=== PATIENT | male | born 1945 | race Caucasian/White ===

== ENCOUNTER 2018-03-19 08:23 | Day surgery (SDC) | payer OTHER ==
[2018-03-15 10:28] LABS: Absolute Lymphocytes (CBC) 1.2 K/uL (0.7-4.9); Absolute Monocytes 0.6 K/uL (0.1-1.3); Absolute Neutrophil 4.6 K/uL (1.8-8.0); Basophils % 0.8 % (0-1.3); Eosinophils % 7.1 % (0-4.4); Hematocrit 45.8 % (39.6-49.0); Lymphocytes % 17.5 % (15.3-44.8); MCH 32.2 pg (27.0-35.0); MCV 96.1 fL (80-100); MPV 9.9 fL (7.6-11.3); RBC Red Blood Cell Count 4.77 M/uL (4.33-5.43)
[2018-03-15 10:29] LABS: Urine Appearance CLOUDY; Urine Bilirubin NEGATIVE (NEG); Urine Blood 3+ (NEG); Urine Color YELLOW; Urine Glucose NEGATIVE (NEG); Urine Protein 1+ (NEG); Urine Urobilinogen 0.2 mg/dL (0.2-1.0); Urine pH 5.5 (5.0-7.0)
[2018-03-15 10:31] LABS: Urine Microscopic Reflex ORDER UMIC
[2018-03-15 10:40] LABS: Protime INR 0.9
[2018-03-15 10:41] LABS: Phosphorus 2.8 mg/dL (2.5-4.9); Potassium 4.6 mmol/L (3.5-5.1); Uric Acid 5.1 mg/dL (3.5-7.2)
[2018-03-15 10:52] LABS: Urine Bacteria 20-50 /HPF (NONE SEEN); Urine RBC TNTC /HPF (NONE SEEN)
[2018-03-15 10:53] LABS: Urine Culture Reflex Order NOT NEEDED
--- NOTE | 2018-03-15 11:05 | RAD REPORT ---
EXAM DESCRIPTION: RAD - Chest Pa And Lat (2 Views) - 03/15/2018 10:27 am CLINICAL HISTORY: Preop chest examination, history of kidney stones, pending prostate procedure, his tory of testicular carcinoma with orchidectomy COMPARISON: CT study March 11 TECHNIQUE: PA and lateral views of the chest were obtained. FINDINGS: The lungs are clear of an acute infiltrate, mass or failure. Heart size is normal and ce ntral vasculature is within normal limits. No pleural effusion or pneumothorax seen. No acute aorti c finding. Aortic tortuosity is present. Hilar regions are not outside of normal range. Bony degenerative changes are present. Near the thoracolumbar junction common approximately 40% compr ession fracture deformity is seen. Posterior wall height appears to be preserved. Comparison is only a few days old. There are no remote studies to establish acute or long-term stability. IMPRESSION: No acute cardiopulmonary process. Compression fracture near the thoracolumbar junction is of uncertain age. The CT study did not show lytic or blastic change in this region. Follow-up MR imaging could be performed to evaluate for any a ctive marrow process.
--- NOTE | 2018-03-15 18:50 | EKG ---
Test Date: 2018-03-15 Test Time: 10:02:31 Systems Integration Manager: KENISHA MEASUREMENT RESULTS: Intervals: Rate: 43 IN: 216 QRSD: 80 QT: 480 QTc: 405 [place]: P: 32 IN: 216 QRS: 21 T: 24 INTERPRETIVE STATEMENTS: Marked sinus bradycardia with 1st degree AV block Abnormal ECG No previous ECG available for comparison Electronically Signed On 03-15-18 18:47:30 CDT by Jimneez Cote
[2018-03-19] MEDS ORDERED: Ringers Lactate 1,000 ML IV ONE (08:31)
[2018-03-19] MEDS ORDERED: GENTAMICIN 100 MG/100 ML BAG 100 MG/100 ML BAG IV ONE (08:31)
[2018-03-19] MEDS ORDERED: LIDOCAINE 2% MPF 5 ML VIAL ONE (09:26)
[2018-03-19] MEDS ORDERED: PROPOFOL 200 MG/20 ML VIAL IV ONE (09:26)
[2018-03-19] MEDS ORDERED: MIDAZOLAM HCL 2 MG/2 ML INJ ONE (09:26)
[2018-03-19] MEDS ORDERED: FENTANYL CITR 100 MCG/2 ML ONE (09:27)
[2018-03-19] MEDS ORDERED: ONDANSETRON 4 MG/2 ML VIAL ONE (10:09)
--- NOTE | 2018-03-19 10:45 | RAD REPORT ---
EXAM DESCRIPTION: RAD - Abdomen 1 View (KUB) - 03/19/2018 8:46 am CLINICAL HISTORY: ICD N 20.0 FINDINGS: The bowel gas pattern is unremarkable. The known calculus within the left renal pelvis is not visualized on this examination. Calcifications in the pelvis likely represent phleboliths
== END 2018-03-19 12:55 | disposition home or self-care (01) ==
LOC: OR 08:23
PROVIDERS: ATTEND Urology
PROC: BT1FYZZ Fluoroscopy of Left Kidney, Ureter and Bladder using Other Contrast (ICD-10-PCS; 2018-03-19)
PROC: 0TF78ZZ Fragmentation in Left Ureter, Via Natural or Artificial Opening Endoscopic (ICD-10-PCS; principal; 2018-03-19 09:30)
DX: N40.1 Benign prostatic hyperplasia with lower urinary tract symptoms (principal); N20.0 Calculus of kidney; R39.12 Poor urinary stream; R31.21 Asymptomatic microscopic hematuria
CPT/HCPCS: 36415; 50590; 52005; 71046; 74018; 80048; 84100; 84550; 85025; 85610; 85730; 86850; 86900; 86901; 87086; 93005; J1580; J2250; J2405; J3010; Q9967; 81003; 81015; 87088

== ENCOUNTER 2024-11-24 10:21 | Emergency (ER) | payer OTHER ==
--- OUTSIDE RECORDS SUMMARY | 2024-11-24 10:26 | XMS REPORT | Continuity of Care Document ---
Author Name Unknown Address [address] [place] [address] [facility] Address [address] [place] [address] Care Team Providers Care Health Safety Coordinator Name Role Phone Unavailable Unavailable Unavailable Payers Payer Name Policy Type Policy Number Effective Date Expirati on Date Source Allergies, Adverse Reactions, Alerts Allergy Name Allergy Type Status Severity Reaction(s) Onset Date Inactive Date Treating Clinician Comments Source Sulfa (Sulfona mide Antibiot ics) DA Active U 04-22 00:00: 00 [facility] Encounters Start Date/Time End Date/Time Encounter Type Admission Type Attending Clinicians Care Facility Care Department Encounter ID Source 2019-08-01 05:13:00 2019-08-01 05:13:00 Outpatient [id number]
[2024-11-24] MEDS ORDERED: FAMOTIDINE 20 MG/2 ML VIAL IV ONE (10:53)
[2024-11-24] MEDS ORDERED: FOLIC ACID 5 MG/ML VIAL ONE (10:53)
[2024-11-24] MEDS ORDERED: NA CHLORIDE 0.9% 2,000 ML ONE (10:54)
[2024-11-24 11:05] LABS: PT Prothrombin Time 13.4 SECONDS (10-13.0); Protime INR 1.18
[2024-11-24 11:09] LABS: Absolute Lymphocytes (CBC) 1.1 K/uL (0.7-4.9); Absolute Monocytes 1.9 K/uL (0.1-1.3); Absolute Neutrophil 13.3 K/uL (1.8-8.0); Basophils % 0.1 % (0-1.3); Hemoglobin 13.6 g/dL (13.6-17.9); Lymphocytes % 6.7 % (15.3-44.8); MCHC 33.2 g/dL (32.0-36.0); MCV 93.4 fL (80-100); MPV 9.9 fL (7.6-11.3); Monocytes % 11.6 % (3.3-12.3); Neutrophils % 81.6 % (41.7-73.7); Platelets 234 thou/uL (152-406); RBC Red Blood Cell Count 4.38 M/uL (4.33-5.43); Red Cell Distribution Width 14.3 % (12.1-15.2)
[2024-11-24 11:18] LABS: Albumin 2.9 g/dL (3.4-5.0); Albumin/Globulin Ratio 0.7 (1.1-1.8); Anion Gap 9.6 mEq/L (5.0-15.0); Bilirubin Direct 0.3 mg/dL (0-0.2); Bilirubin Indirect, Calculated 0.8 mg/dL (0.2-0.8); Bilirubin Total 1.1 mg/dL (0.2-1.0); Globulin 4.2 g/dL (2.3-3.5); Magnesium 2.2 mg/dL (1.6-2.4); Potassium 3.6 mEq/L (3.5-5.1); Protein, Total 7.1 g/dL (6.4-8.2)
[2024-11-24 11:21] LABS: Troponin High Sensitivity 125.3 pg/mL (<58.9)
--- NOTE | 2024-11-24 11:26 | ER ---
Nurse's Notes [facility] [place] Name: Enrique Bajwa Jr Age: 79 yrs Sex: Male : 1945 Arrival Date: 11/24/2024 Time: 10:21 Bed 7 Private MD: Diagnosis: Weakness;UTI/ Urinary tract infection, site not specified;Hydronephrosis with renal and ureteral calculous obstruction-8 mm left proximal;Chronic kidney disease, unspecified;Elevated white blood cell count;exterminator helper (current) use of anticoagulants Presentation: 11/24 10:38 Chief complaint: Patient states: Dizziness, R hand and foot tingling/ weakness that ss began at approximately 0900 yesterday morning. Coronavirus screen: Client denies travel out of the [place] in the last 14 days. Ebola Screen: Patient denies exposure to infectious person. Patient denies travel to an Ebola-affected area in the 21 days before illness onset. Initial Sepsis Screen: Does the patient meet any 2 criteria? No. Patient's initial sepsis screen is negative. Does the patient have a suspected source of infection? No. Patient's initial sepsis screen is negative. Risk Assessment: Do you want to hurt yourself or someone else? Patient reports no desire to harm self or others. Onset of symptoms was November 23, 2024 at 09:00. 10:38 Method Of Arrival: Wheelchair ss 10:38 Acuity: DOUG 3 ss 11:00 No acute neurological deficit is noted. Pre-hospital glucose is not applicable to this jl7 patient. Triage Assessment: 11:00 The onset of the patients symptoms was November 23, 2024 at 12:00. General: Appears in no jl7 apparent distress. uncomfortable, Behavior is calm, cooperative, appropriate for age. Pain: Denies pain. Neuro: Level of Consciousness is awake, alert, obeys commands, Oriented to person, place, time, situation, Reports dizziness. Stroke Activation: Symptom onset > 6 hours Physician: ED Attending; Name: ; Notified At: ; Arrived At: Physician: Mid-Level Provider; Name: ; Notified At: ; Arrived At: Physician: [not used]; Name: ; Notified At: ; Arrived At: Physician: [not used]; Name: ; Notified At: ; Arrived At: Physician: [not used]; Name: ; Notified At: ; Arrived At: Historical: - Allergies: 10:41 Novacaine; ss - Home Meds: 11:00 Eliquis oral [Active]; jl7 - PMHx: 11:00 Cerebrovascular accident; jl7 - Immunization history:: Client reports receiving the 2nd dose of the Covid vaccine. - Infectious Disease History:: Denies. - Social history:: Smoking status: Patient denies any tobacco usage or history of. Screenin:56 [facility] ED Fall Risk Assessment (Adult) History of falling in the last 3 months, iw including since admission No falls in past 3 months (0 pts) Confusion or Disorientation No (0 pts) Intoxicated or Sedated No (0 pts) Impaired Gait Yes (1 pt) Mobility Assist Device Used Yes (1 pt) Altered Elimination No (0 pt) Score/Fall Risk Level 0 - 2 = Low Risk Oriented to surroundings, Maintained a safe environment. Abuse screen: Denies threats or abuse. Nutritional screening: No deficits noted. Tuberculosis screening: No symptoms or risk factors identified. Assessment: 10:50 VAN Scoring: Arm Drift: Patients demonstrates NO arm weakness. Patient is VAN Negative. iw Visual Disturbance: No visual disturbance noted. Aphasia: No aphasia noted. Neglect: No neglect noted. TNKase (Tenecteplase) Screening: Contraindications: Patient reports onset of signs and symptoms of stroke greater than 6 hours ago: Yes. Is the patient on Aspirin, Heparin, or Warfarin: Yes. 10:50 [place] Swallow Protocol Exclusion Criteria: Unable to remain alert for testing: No NPO iw for medical/surgical reason by provider order No Brief Cognitive Screen What is your name? Normal, Where are you right now? Normal, What year is it? Normal. Oral Mechanism Examination Facial Symmetry: Normal, Oral Mechanism Result: Normal. 3 oz Water Swallow Challenge: Pt able to drink all water without stopping, coughing, choking or throat clearing: Result: PASS MD Notified: Cristiano Basilio MD. 11:21 Reassessment: Dr. Basilio notified of critical lab value TROPONIN 125.3. ss 12:00 Reassessment: Patient appears in no apparent distress at this time. Patient and/or iw family updated on plan of care and expected duration. Pain level reassessed. assisted with urinal. Vital Signs: 10:38 BP 134 / 70; Pulse 76; Resp 18; Temp 97.6(O); Pulse Ox 95% on R/A; Weight 81.65 kg; ss Height 5 ft. 10 in. ; Pain 0/10; 13:49 BP 113 / 83; Pulse 73; Resp 15; Pulse Ox 92% ; jl7 15:18 BP 120 / 71; Pulse 57; Resp 19; Pulse Ox 100% on R/A; iw 10:38 Body Mass Index 25.83 (81.65 kg, 177.8 cm) ss 10:38 Pain Scale: Adult ss NIH Stroke Scale Scores: 10:50 NIHSS Score: 2 iw ED Course: 10:22 Patient arrived in ED. im 10:24 Cristiano Basilio MD is Attending Physician. eliot 10:40 Robbin Rashid RN is Primary Nurse. jl7 10:40 Triage completed. ss 10:41 Arm band placed on right wrist. ss 10:51 Inserted saline lock: 20 gauge in right antecubital area, using aseptic technique. iw Blood collected. Flushed with 10 mL NS. 10:53 Basic Metabolic Panel Sent. bc6 10:53 CBC with Diff Sent. bc6 10:53 LFT's Sent. bc6 10:53 Magnesium Sent. bc6 10:53 NT PRO-BNP Sent. bc6 10:53 PT-INR Sent. bc6 10:53 Troponin HS Sent. bc6 10:53 Lactate w/ 2H reflex if indic. Sent. bc6 10:53 Blood Culture Adult (2) Sent. bc6 10:53 Lipase Sent. bc6 10:53 COVID-19 Ag + Flu A+B Ag Sent. bc6 10:56 Patient has correct armband on for positive identification. Placed in gown. Bed in low iw position. 11:11 XRAY Chest (1 view) In Process Unspecified. EDMS 11:23 Grayson Camacho MD is Hospitalizing Provider. eliot 11:53 CT Head Brain wo Cont In Process Unspecified. EDMS 11:53 CT Head Angio In Process Unspecified. EDMS 11:53 CT Neck Angio In Process Unspecified. EDMS 11:53 Brain Wo Cont In Process Unspecified. EDMS 11:54 Stone Protocol In Process Unspecified. EDMS 15:43 Provided Education on: use of call gallego. jl7 15:43 No provider procedures requiring assistance completed. Patient transferred, IV remains jl7 in place. intact, No redness/swelling at site. Administered Medications: 11:00 Drug: NS 0.9% IV (30 ml/kg) 30 ml/kg IV at bolus once; Sepsis Protocol; to be given as jl7 a bolus over 90 minutes Route: IV; Rate: bolus; Site: right antecubital; 15:13 Follow up: IV Status: Completed infusion iw 11:00 Drug: Famotidine IVP 20 mg IVP once; dilute with 10 mL 0.9% NaCl; give over 2 minutes jl7 Route: IVP; Site: right antecubital; 15:13 Follow up: Response: No adverse reaction iw 11:00 Drug: foLIC Acid IVPB 1 mg IVPB once Route: IVPB; Site: right antecubital; jl7 15:13 Follow up: IV Status: Completed infusion iw 13:09 Drug: Rocephin IV 1 grams IV at per protocol once; Given slow IV push per pharmacy iw instructions Route: IV; Rate: per protocol; Site: right antecubital; 15:13 Follow up: IV Status: Completed infusion iw 13:09 Drug: Mucomyst - Acetylcysteine PO 600 mg PO once Route: PO; iw 15:12 Follow up: Response: No adverse reaction iw 13:09 Drug: Flomax PO 0.4 mg PO once Route: PO; iw 15:12 Follow up: Response: No adverse reaction iw Medication: 10:56 VIS not applicable for this client. iw Outcome: 11:25 Decision to Hospitalize by Provider. eliot 12:54 ER care complete, transfer ordered by MD. eliot 15:40 Transferred by ground EMS to [facility], Transfer form completed. jb4 X-rays sent w/ patient. 15:40 Condition: stable 15:40 Discharge instructions given to family, Instructed on the need for transfer, Demonstrated understanding of instructions, 15:44 Patient left the ED. jl7 NIH Stroke Scale - NIH Stroke Score Date: 11/24/2024 Time: 10:50 Total Score = 2 10. Dysarthria (speech clarity - read or repeat words) - 0(Normal) 11. Extinction and Inattention (visual/tactile/auditory/spatial/personal) - 0(No abnormality) 1a. Level of Consciousness (LOC) - 0(Alert) 1b. Level of Consciousness (LOC) (Month \T\ Age) - 0(Both) 1c. LOC Commands (Open \T\ Closes Eyes/Fish Drier) - 0(Both) 2. Best Gaze (Lateral Gaze Paresis) - 0(Normal) 3. Visual Field Loss - 0(No visual loss) 4. Facial Palsy - 0(Normal) 5a. Left Arm: Motor (10-second hold) - 0(No drift) 5b. Right Arm: Motor (10-second hold) - 0(No drift) 6a. Left Leg: Motor (5-second hold - always test supine) - 2(Drift, some effort against gravity) 6b. Right Leg: Motor (5-second hold - always test supine) - 0(No drift) 7. Limb Ataxia (finger/nose \T\ heel/cedillo - test with eyes open) - 0(Absent) 8. Sensory Loss (pinprick arms/legs/face) - 0(Normal) 9. Best Language: Aphasia (description/naming/reading) - 0(No aphasia) Initials: iw Signatures: Dispatcher [employer] EDCristiano Rosenbaum MD MD cha Williams, Irene, RN RN Aliya Pacheco, RN RN Graham Amador, NELY RN Robbin Waggoner RN RN jl7 Venessa Scott Itzel im
--- NOTE | 2024-11-24 11:26 | EDPHYS ---
Physician Documentation [facility] Name: Enrique Bajwa Jr Age: 79 yrs Sex: Male : 1945 Arrival Date: 11/24/2024 Time: 10:21 Bed 7 Private MD: ED Physician Cristiano Basilio HPI: 11/24 10:42 This 79 yrs old Male presents to ER via Wheelchair with complaints of General eliot Weakness. 10:42 weak and dizzy. The patient presents with dizziness, generalized weakness. Onset: The eliot symptoms/episode began/occurred this morning. Context: occurred at home. Modifying factors: The symptoms are alleviated by nothing, the symptoms are aggravated by nothing. Associated signs and symptoms: The patient has no apparent associated signs or symptoms. Severity of symptoms: At their worst the symptoms were moderate in the emergency department the symptoms are unchanged. Patient's baseline: Neuro: alert and fully oriented. Historical: - Allergies: 10:41 Novacaine; ss - Home Meds: 11:00 Eliquis oral [Active]; jl7 - PMHx: 11:00 Cerebrovascular accident; jl7 - Immunization history:: Client reports receiving the 2nd dose of the Covid vaccine. - Infectious Disease History:: Denies. - Social history:: Smoking status: Patient denies any tobacco usage or history of. ROS: 10:43 Constitutional: Negative for fever, chills, and weight loss, Eyes: Negative for injury, eliot pain, redness, and discharge, ENT: Negative for injury, pain, and discharge, Neck: Negative for injury, pain, and swelling, Cardiovascular: Negative for chest pain, palpitations, and edema, Respiratory: Negative for shortness of breath, cough, wheezing, and pleuritic chest pain, Abdomen/GI: Negative for abdominal pain, nausea, vomiting, diarrhea, and constipation, Back: Negative for injury and pain, : Negative for injury, bleeding, discharge, and swelling, MS/Extremity: Negative for injury and deformity, Skin: Negative for injury, rash, and discoloration, Psych: Negative for depression, anxiety, suicide ideation, homicidal ideation, and hallucinations, Allergy/Immunology: Negative for hives, rash, and allergies, Endocrine: Negative for neck swelling, polydipsia, polyuria, polyphagia, and marked weight changes, Hematologic/Lymphatic: Negative for swollen nodes, abnormal bleeding, and unusual bruising, 10:43 Neuro: Positive for altered mental status, dizziness, weakness, Exam: 10:44 Constitutional: This is a well developed, well nourished patient who is awake, alert, eliot and in no acute distress. Head/Face: Normocephalic, atraumatic. Eyes: Pupils equal round and reactive to light, extra-ocular motions intact. Lids and lashes normal. Conjunctiva and sclera are non-icteric and not injected. Cornea within normal limits. Periorbital areas with no swelling, redness, or edema. ENT: Nares patent. No nasal discharge, no septal abnormalities noted. Tympanic membranes are normal and external auditory canals are clear. Oropharynx with no redness, swelling, or masses, exudates, or evidence of obstruction, uvula midline. Mucous membranes moist. Neck: Trachea midline, no thyromegaly or masses palpated, and no cervical lymphadenopathy. Supple, full range of motion without nuchal rigidity, or vertebral point tenderness. No Meningismus. Chest/axilla: Normal chest wall appearance and motion. Nontender with no deformity. No lesions are appreciated. Cardiovascular: Regular rate and rhythm with a normal S1 and S2. No gallops, murmurs, or rubs. Normal PMI, no JVD. No pulse deficits. Respiratory: Lungs have equal breath sounds bilaterally, clear to auscultation and percussion. No rales, rhonchi or wheezes noted. No increased work of breathing, no retractions or nasal flaring. Abdomen/GI: Soft, non-tender, with normal bowel sounds. No distension or tympany. No guarding or rebound. No evidence of tenderness throughout. Back: No spinal tenderness. No costovertebral tenderness. Full range of motion. Male : Normal genitalia with no discharge or lesions. Skin: Warm, dry with normal turgor. Normal color with no rashes, no lesions, and no evidence of cellulitis. MS/ Extremity: Pulses equal, no cyanosis. Neurovascular intact. Full, normal range of motion., bilateral aka Neuro: Awake and alert, GCS 15, oriented to person, place, time, and situation. Cranial nerves II-XII grossly intact. Motor strength 5/5 in all extremities. Sensory grossly intact. Cerebellar exam normal. Normal gait. Psych: Awake, alert, with orientation to person, place and time. Behavior, mood, and affect are within normal limits. 10:44 ECG was reviewed by the Attending Physician. Vital Signs: 10:38 BP 134 / 70; Pulse 76; Resp 18; Temp 97.6(O); Pulse Ox 95% on R/A; Weight 81.65 kg; ss Height 5 ft. 10 in. ; Pain 0/10; 13:49 BP 113 / 83; Pulse 73; Resp 15; Pulse Ox 92% ; jl7 15:18 BP 120 / 71; Pulse 57; Resp 19; Pulse Ox 100% on R/A; iw 10:38 Body Mass Index 25.83 (81.65 kg, 177.8 cm) 10:38 Pain Scale: Adult ss NIH Stroke Scale Scores: 10:50 NIHSS Score: 2 iw MDM: 10:24 Medical Screening Exam initiated eliot 10:45 Differential diagnosis: cardiac arrhythmia, CVA, generalized weakness, GI bleed, eliot idiopathic dizziness, near-syncope, sepsis, TIA. Data reviewed: vital signs, nurses notes, lab test result(s), EKG, radiologic studies, plain films. Consideration of Admission/Observation Patient was admitted/placed on observation. Escalation of care including admission/observation considered. I considered the following discharge prescriptions or medication management in the emergency department Medications were administered in the Emergency Department. See MAR. Independent interpretation of the following test(s) in the Emergency Department EKG: See my EKG interpretation above. Test considered but Not performed: Ultrasound no carotid doppler. Historians other than the Patient: Family Member: family well informed. Care significantly affected by the following chronic conditions: Diabetes, Hypertension, Obesity, eliquis. 11/24 10:26 Order name: Basic Metabolic Panel; Complete Time: 11/24 10:26 Order name: CBC with Diff; Complete Time: :11/24 10:26 Order name: LFT's; Complete Time: :11/24 10:26 Order name: Magnesium; Complete Time: :11/24 10:26 Order name: NT PRO-BNP; Complete Time: :11/24 10:26 Order name: PT-INR; Complete Time: :11/24 10:26 Order name: Troponin HS; Complete Time: 11/24 10:26 Order name: Lipase; Complete Time: 11:22 [facility] 11/24 10:26 Order name: Urinalysis w/ reflexes; Complete Time: 15:13 [facility] 11/24 10:26 Order name: COVID-19 Ag + Flu A+B Ag; Complete Time: 11:47 [facility] 11/24 10:26 Order name: Blood Culture Adult (2) [facility] 11/24 10:26 Order name: Lactate w/ 2H reflex if indic.; Complete Time: 11:22 [facility] 11/24 11:22 Order name: Ghost Lactate-NO COLLECT Timer; Complete Time: 15:13 [facility] 11/24 13:47 Order name: Urine Culture [facility] 11/24 14:37 Order name: Lactate Sepsis 2 HR Follow-up; Complete Time: 15:13 [facility] 11/24 10:26 Order name: XRAY Chest (1 view); Complete Time: 15:13 [facility] 11/24 10:39 Order name: CT Head Brain wo Cont; Complete Time: 12:27 [facility] 11/24 10:39 Order name: CT Head Angio; Complete Time: 12:51 [facility] 11/24 10:39 Order name: CT Neck Angio; Complete Time: 12:51 [facility] 11/24 10:56 Order name: Brain Wo Cont; Complete Time: 13:08 [facility] 11/24 11:39 Order name: Stone Protocol; Complete Time: 12:51 [facility] 11/24 10:26 Order name: EKG; Complete Time: 10:26 [facility] 11/24 10:26 Order name: Cardiac monitoring; Complete Time: 10:53 [facility] 11/24 10:26 Order name: EKG - Nurse/Tech; Complete Time: 10:53 [facility] 11/24 10:26 Order name: IV Saline Lock; Complete Time: 10:53 [facility] 11/24 10:26 Order name: Labs collected and sent; Complete Time: 10:53 [facility] 11/24 10:26 Order name: O2 Per Protocol; Complete Time: 10:53 [facility] 11/24 10:26 Order name: O2 Sat Monitoring; Complete Time: 10:53 [facility] EC:44 Rate is 76 beats/min. Rhythm is regular. QRS [place] is Normal. NH interval is prolonged eliot at 234 msec. QRS interval is normal. QT interval is normal. No Q waves. T waves are Normal. No ST changes noted. Clinical impression: NSR w/ Non-specific ST/T Changes and No evidence of ischemia. Interpreted by me. Reviewed by me. Administered Medications: 11:00 Drug: NS 0.9% IV (30 ml/kg) 30 ml/kg IV at bolus once; Sepsis Protocol; to be given as jl7 a bolus over 90 minutes Route: IV; Rate: bolus; Site: right antecubital; 15:13 Follow up: IV Status: Completed infusion iw 11:00 Drug: Famotidine IVP 20 mg IVP once; dilute with 10 mL 0.9% NaCl; give over 2 minutes jl7 Route: IVP; Site: right antecubital; 15:13 Follow up: Response: No adverse reaction iw 11:00 Drug: foLIC Acid IVPB 1 mg IVPB once Route: IVPB; Site: right antecubital; jl7 15:13 Follow up: IV Status: Completed infusion iw 13:09 Drug: Rocephin IV 1 grams IV at per protocol once; Given slow IV push per pharmacy iw instructions Route: IV; Rate: per protocol; Site: right antecubital; 15:13 Follow up: IV Status: Completed infusion iw 13:09 Drug: Mucomyst - Acetylcysteine PO 600 mg PO once Route: PO; iw 15:12 Follow up: Response: No adverse reaction iw 13:09 Drug: Flomax PO 0.4 mg PO once Route: PO; iw 15:12 Follow up: Response: No adverse reaction iw Disposition Summary: 11/24/24 12:54 Transfer Ordered Notes: Transfer Location: [facility] eliot Reason: Higher level of care eliot Condition: Fair(11/24/24 12:54) eliot Problem: new(11/24/24 12:54) eliot Symptoms: have improved(11/24/24 12:54) eliot Accepting Physician: to [facility](11/24/24 15:44) jl7 Diagnosis - Weakness(11/24/24 12:54) eliot - UTI/ Urinary tract infection, site not specified eliot - Hydronephrosis with renal and ureteral calculous obstruction - 8 mm left proximal eliot - Chronic kidney disease, unspecified(11/24/24 12:54) eliot - Elevated white blood cell count(11/24/24 12:54) eilot - long-term (current) use of anticoagulants eliot Forms: - Medication Reconciliation Form eliot - SBAR form eliot NIH Stroke Scale - NIH Stroke Score Date: 11/24/2024 Time: 10:50 Total Score = 2 10. Dysarthria (speech clarity - read or repeat words) - 0(Normal) 11. Extinction and Inattention (visual/tactile/auditory/spatial/personal) - 0(No abnormality) 1a. Level of Consciousness (LOC) - 0(Alert) 1b. Level of Consciousness (LOC) (Month \T\ Age) - 0(Both) 1c. LOC Commands (Open \T\ Closes Eyes/Overedge Machine Operator) - 0(Both) 2. Best Gaze (Lateral Gaze Paresis) - 0(Normal) 3. Visual Field Loss - 0(No visual loss) 4. Facial Palsy - 0(Normal) 5a. Left Arm: Motor (10-second hold) - 0(No drift) 5b. Right Arm: Motor (10-second hold) - 0(No drift) 6a. Left Leg: Motor (5-second hold - always test supine) - 2(Drift, some effort against gravity) 6b. Right Leg: Motor (5-second hold - always test supine) - 0(No drift) 7. Limb Ataxia (finger/nose \T\ heel/cedillo - test with eyes open) - 0(Absent) 8. Sensory Loss (pinprick arms/legs/face) - 0(Normal) 9. Best Language: Aphasia (description/naming/reading) - 0(No aphasia) Initials: iw Signatures: Dispatcher [employer] EDMS Cristiano Basilio MD MD cha Williams, Irene, RN RN Aliya Rosa RN RN ss Leal, Jahala, RN RN jl7 Corrections: (The following items were deleted from the chart) 10:27 10:26 BASIC METABOLIC PANEL+C.LAB.BRZ ordered. EDMS EDMS 10:27 10:26 CBC+H.LAB.BRZ ordered. EDMS EDMS 10:27 10:26 HEPATIC FUNCTION+C.LAB.BRZ ordered. EDMS EDMS 10:27 10:26 MAGNESIUM+C.LAB.BRZ ordered. EDMS EDMS 10:27 10:26 PROBNP+C.LAB.BRZ ordered. EDMS EDMS 10:27 10:26 PROTIME (+INR)+COAG.LAB.BRZ ordered. EDMS EDMS 10:27 10:26 Troponin High Sensitivity+C.LAB.BRZ ordered. EDMS EDMS 10:27 10:26 LIPASE+C.LAB.BRZ ordered. EDMS EDMS 10:27 10:26 Urinalysis+U.LAB.BRZ ordered. EDMS EDMS 10:27 10:26 COVID-19 Ag + Flu A+B Ag+I.LAB.BRZ ordered. EDMS EDMS 10:27 10:26 BLOOD CULTURE*+BA.LAB.BRZ ordered. EDMS EDMS 10:27 10:26 LACTATE+C.LAB.BRZ ordered. EDMS EDMS 10:56 10:39 MR STROKE PROTOCOL+MRI.RAD.BRZ ordered. EDMS EDMS 12:51 11:25 Inpatient Admission eliot eliot 12:51 11:25 Grayson Camacho eliot eliot 12:51 11:25 Telemetry/MedSurg (Inpatient) eliot eliot 12:51 11:25 Fair eliot eliot 12:51 11:25 new eliot eliot 12:51 11:25 have improved eliot eliot 12:51 11:25 Standard eliot eliot 12:51 11:25 eliot eliot 12:51 11:25 Weakness eliot eliot 12:51 11:25 Chronic kidney disease, unspecified eliot eliot 12:51 11:25 Elevated white blood cell count eliot eliot 12:51 11:[address] elevation [place] eliot eliot 13:11 12:[facility] eliot eliot 15:44 13:11 to [facility] eliot jl7
[2024-11-24 11:30] LABS: Influenza A Ag Negative; Influenza B Ag Negative; SARS-CoV-2 Antigen Rapid Res Negative (Negative)
[2024-11-24] MEDS ORDERED: ACETYLCYST 6,000 MG/30 ML VIAL ONE (11:30)
[2024-11-24] MEDS ORDERED: CEFTRIAXONE 1000 MG/VIAL ONE (11:30)
--- NOTE | 2024-11-24 12:13 | RAD REPORT ---
EXAM: CT brain without contrast HISTORY: Numbness COMPARISON: None TECHNIQUE: Multiple contiguous axial images were obtained and a CT of the brain without contrast.. Sagittal and coronal reconstruction performed. Automated exposure control, adjustment of the mA and/or kV according to patient size, and/or iterative reconstruction. Unless otherwise specified, incidental f indings do not require dedicated imaging follow-up FINDINGS: An intracranial bleed is not seen Ventricles are normal caliber No extra-axial fluid collection noted 2 cm low-density area right cerebellum probably an old infarction. Low-density right thalamus probably old infarction. No fluid within the visualized sinuses or mastoids noted. IMPRESSION: No acute intracranial abnormality noted. If the patient continues to have symptoms to suggest an acute intracranial abnormality then MRI of th e brain would be recommended.
--- NOTE | 2024-11-24 12:32 | RAD REPORT ---
EXAMINATION: CTA HEAD CLINICAL INDICATION: Numbness TECHNIQUE: Axial CT images were obtained through the head after 100 cc Isovue-370 intravenous contras t utilizing angiographic protocol with 3D post-processing (maximum intensity projection images, volume rendered images and/or shaded surface rendered images). One or more of the following dose red uction techniques were used: Automated exposure control, adjustment of the mA and/or kV according to patient size, and/or iterative reconstruction. Unless otherwise specified, incidental findings do not require dedicated imaging follow-up. COMPARISON: None FINDINGS: Distal internal carotid, basilar, anterior cerebral, middle cerebral and posterior cerebral arteries do not demonstrate a significant stenosis origin posterior cerebral arteries An aneurysm not noted. No large vessel occlusion IMPRESSION: No acute vascular abnormality displayed
--- NOTE | 2024-11-24 12:33 | RAD REPORT ---
EXAMINATION: Neck Angio CLINICAL INDICATION: Numbness TECHNIQUE: Axial CT images were obtained from the aortic arch to the skull base after intravenous adm inistration of 100 cc Isovue-370 utilizing angiographic protocol. Multiplanar reformats, as well as 3D post-processing (maximum intensity projection images, volume rendered images and/or shaded surface rendered images) were generated and reviewed. One or more of the following dose reduction techniques were used: Automated exposure control, adjustment of the mA and/or kV according to patient size, and/or iterative reconstruction. Unless otherwise specified, incidental findings do not require dedicated imaging follow-up. COMPARISON: No prior exam. FINDINGS: The visualized great vessels do not demonstrate a significant abnormality Carotid bulbs bilaterally are ectatic measuring 1.3 cm No significant plaque within the common carotid, internal carotid, external carotid or vertebral simon vicki bilaterally. No significant stenosis noted. A dissection is not seen. Methods for NASCET criteria: Mild stenosis, 0% to 49%; Moderate stenosis 50% to 69%; Severe stenosis, 70% to 99% IMPRESSION: Ectatic carotid bulbs bilaterally
--- NOTE | 2024-11-24 12:42 | RAD REPORT ---
EXAMINATION: Stone Protocol CLINICAL INDICATION: Abdominal pain TECHNIQUE: CT abdomen and pelvis was performed, without IV contrast, as per department protocol. Oral contrast not given. Axial, sagittal and coronal reconstructions were obtained. One or more of the following dose reduction techniques were used: Automated exposure control, adjustment of the mA and k V according to the patient size, and iterative reconstruction. Unless otherwise specified, incidental findings do not require dedicated imaging follow-up. COMPARISON: 2019 FINDINGS: The lack of intravenous and oral contrast limits the sensitivity of this exam for evaluation of solid visceral organs, vascular structures, and bowel Bilateral parapelvic renal cysts are present. Several calculi are present within the left renal pelvi s. Tiny calculus calyx left kidney. 2 calculi are present within the proximal left ureter. Largest 8 mm. Moderate left hydronephrosis Tiny calculus right kidney. There probably has not hydronephrosis although evaluation is limited seco ndary to a combination of the many parapelvic cysts and lack of IV contrast. Cholelithiasis. Gallbladder wall does not appear thickened. Liver, spleen, pancreas and adrenals are grossly normal. Postsurgical changes left inguinal hernia repair. [id number] right inguinal hernia contains fa t. Liver, spleen, pancreas and adrenals grossly normal No evidence of diverticulitis.. Mild old compression deformity T12 vertebral body IMPRESSION: Proximal left ureteral calculi resulting in moderate left hydronephrosis
[2024-11-24] MEDS ORDERED: TAMSULOSIN 0.4 MG SR CAP ONE (13:02)
--- NOTE | 2024-11-24 13:02 | RAD REPORT ---
EXAMINATION: MRI BRAIN WITHOUT CONTRAST CLINICAL INDICATION: Numbness TECHNIQUE: Multiplanar multisequence MR images of the brain were obtained without intravenous contras t. Unless otherwise specified, incidental findings do not require dedicated imaging follow-up. COMPARISON: Head CT November 24, 2024. FINDINGS: 4 cm area of abnormal signal right cerebellum compatible with old infarction. 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 Tiny old lacunar infarctions right and left cerebellum. Small old right cerebral infarction. Small ol d left temporal lobe infarction. Diffusion weighted/ADC mapping does not demonstrate evidence of an acute infarction. Ventricles are normal caliber. No extra-axial fluid collection. No fluid within the sinuses/mastoid seen IMPRESSION: No acute intracranial abnormalities displayed
--- NOTE | 2024-11-24 13:23 | RAD REPORT ---
Procedure: Chest Single View HISTORY: Cough COMPARISON: 2018 FINDINGS: The lungs appear clear of acute infiltrate. No significant pleural effusion noted. The heart is normal size. IMPRESSION: No acute abnormality is displayed.
[2024-11-24 13:44] LABS: Specific Gravity > 1.030 (1.005-1.030); Sqamous Epithelial None Seen /HPF (None Seen); Urine Bacteria <20 /HPF (<20); Urine Bilirubin NEGATIVE (Negative); Urine Blood 3+ (OVER) (Negative); Urine Clarity Extremely Turbid (Clear); Urine Color Yellow (Yellow); Urine Crystals Unidentified Few /HPF (None Seen); Urine Culture Reflex Order REFLEXED; Urine Glucose NEGATIVE (Negative); Urine Ketones TRACE (Negative); Urine Microscopic Reflex YN ORDER UMIC; Urine Mucus 2+ /HPF (None Seen); Urine Nitrite NEGATIVE (Negative); Urine Protein 1+ (Negative); Urine RBC >50 /HPF (None Seen); Urine Urobilinogen Normal (Normal); Urine pH 5.5 (5.0-7.0)
[2024-11-24 16:02] VITALS: TEMP 97.6
[2024-11-24 16:09] VITALS: BP 120/71; O2SAT 100
--- NOTE | 2024-11-25 12:20 | EKG ---
Test Date: 2024-11-24 Test Time: 10:36:58 Tuber Helper: CATARINA MEASUREMENT RESULTS: Intervals: Rate: 76 MN: 234 QRSD: 132 QT: 394 QTc: 443 [place]: P: 91 MN: 234 QRS: 44 T: -18 INTERPRETIVE STATEMENTS: Sinus rhythm with marked sinus arrhythmia with 1st degree AV block Right bundle branch block T wave abnormality, consider inferolateral ischemia Abnormal ECG Compared to ECG 03/15/2018 10:02:31 Right bundle-branch block now present T-wave abnormality now present Possible ischemia now present Sinus bradycardia no longer present Electronically Signed On 11-25-24 12:20:10 CDT by Kj Louise
== END 2024-11-24 15:44 | disposition short-term general hospital (02) ==
LOC: ER 10:21
DX: N39.0 Urinary tract infection, site not specified (principal); N13.2 Hydronephrosis with renal and ureteral calculous obstruction; N18.9 Chronic kidney disease, unspecified; D72.829 Elevated white blood cell count, unspecified; Z86.73 Personal history of transient ischemic attack (TIA), and cerebral infarction without residual deficits; Z79.01 Long term (current) use of anticoagulants; Z11.52 Encounter for screening for COVID-19
CPT/HCPCS: 96365; 96367; 96368; 93005; 87040 ×2; 87088; 85025; 81001; 87086; 80048; 36415; 83735; 85610; 80076; 83605 ×2; 84484; 83690; 83880; 70450; 76377; 70496; 70498; 74176; 71045; 70551; 96375; 99285; 96366; 87428; Q9967; J7608; J7030; J0696